=== PATIENT | male | born 1945 ===

== ENCOUNTER 2017-05-24 16:58 | Emergency (ER) | payer SELFPAY | END 2017-05-24 19:30 | disposition left against medical advice (07) | LOC: DL.ED 16:58 | DX: Z53.21 Procedure and treatment not carried out due to patient leaving prior to being seen by health care provider (principal) ==

== ENCOUNTER 2021-12-14 12:48 | Emergency (ER) | payer SELFPAY | END 2021-12-14 17:31 | disposition left against medical advice (07) | LOC: DL.ED 12:48 | DX: Z53.21 Procedure and treatment not carried out due to patient leaving prior to being seen by health care provider (principal) ==